=== PATIENT | female | born 1960 | race Caucasian/White ===

== ENCOUNTER → 2016-09-07 | Outpatient (CLI) | payer BC ==
--- NOTE | ~2016-09-07 | US6 ---
[facility] A Service of [facility] & [facility] RADIOLOGY TEXT RESULTS PATIENT: EDMUNDO NAJERA LOCATION: [facility] : 56 UNIT #: [id number] AGE: [address]: Fabricio Sadler MD SEX: F ORDER DR: [id number] [address] [address] [id number] O MR#: [id number] Acc #: [id number] NAME: EDMUNDO NAJERA : 1960 SEX: F STUDY DATE/TIME: 09/07/2016 10:08 UNIT: [facility] ROOM: STUDY DESCRIPTION: US Abdominal Limited Attending Physician: Fabricio Sadler M.D. Referring Physician: Fabricio Sadler M.D. Ordering Physician: Fabricio Sadler M.D. Primary Care Physician: Fabricio Sadler M.D. MEDICAL IMAGING REPORT This report is preliminary unless electronic signature is present. EXAM Right upper quadrant ultrasound 09/07/2016 HISTORY Right upper quadrant abdominal pain for 6 months with nausea and vomiting. FINDINGS The liver is homogeneous in echotexture and demonstrates no cystic or solid mass lesions. The intra- and extrahepatic bile ducts are not dilated. The gallbladder contains a solitary 5 mm nonshadowing echogenic focus along its dependent portion. This is a nonspecific finding and could represent a nonshadowing gallstone, a polyp, or a sludge ball. There is no evidence of gallbladder wall thickening or pericholecystic fluid. The common duct measures 3 mm. The pancreas is poorly visualized due to overlying bowel gas. The right kidney is normal. IMPRESSION 1. Solitary 5 mm echogenic nonmobile, nonshadowing focus along the dependent gallbladder wall. Differential diagnosis includes a small gallbladder polyp, nonshadowing gallstone, or sludge ball. 2. Poor visualization of the pancreas due to overlying bowel gas. Dictated by... Antonio Concepcion M.D. THIS IS AN ELECTRONICALLY VERIFIED REPORT Antonio Concepcion M.D. at 09/07/2016 4:34 PM EAGLE/florentin TD: 09/07/2016 15:56 JOB #: [id number] [facility] A Service of [facility] & [facility] RADIOLOGY TEXT RESULTS PATIENT: EDMUNDO NAJERA LOCATION: [facility] : 56 UNIT #: [id number] AGE: [address]: Fabricio Sadler MD SEX: F ORDER DR: MEDICAL IMAGING REPORT Page 1 of 1
== END | disposition home or self-care (01) ==
LOC: SGUS 09:01
DX: R10.11 Right upper quadrant pain (principal)
CPT/HCPCS: 76705

== ENCOUNTER → 2016-11-30 | Outpatient (CLI) | payer BC ==
--- NOTE | ~2016-11-30 | MY30 ---
[facility] A Service of [facility] RADIOLOGY TEXT RESULTS PATIENT: EDMUNDO NAJERA LOCATION: [facility] : 56 UNIT #: [id number] AGE: [address]: Fabricio Sadler MD SEX: F ORDER DR: [id number] [address] [address] [id number] O MR#: [id number] Acc #: [id number] NAME: EDMUNDO NAJERA : 1960 SEX: F STUDY DATE/TIME: 11/30/2016 9:44 UNIT: [facility] ROOM: STUDY DESCRIPTION: MY SCREEN AYAKA BILAT DIGITAL Attending Physician: Fabricio Sadler M.D. Referring Physician: Fabricio Sadler M.D. Ordering Physician: Fabricio Sadler M.D. Primary Care Physician: Fabricio Sadler M.D. MEDICAL IMAGING REPORT This report is preliminary unless electronic signature is present. EXAM Bilateral digital screening mammogram with CAD Date: 11/30/2016 HISTORY No personal family history breast cancer or current complaints. COMPARISON Bilateral screening mammogram performed at [facility], 03/21/15. FINDINGS The study was originally performed on 11/30/16 and submitted for interpretation today, 12/07/2016, after the arrival of outside comparisons. CC and MLO views were obtained of each breast and extended craniocaudal lateral view of the right breast. The study was performed utilizing digital technique and reviewed with an FDA-approved CAD device. Breast parenchyma is mildly fatty replaced. Benign appearing lymph node in the posterior upper outer right breast unchanged from prior. No new or developing nodule, architectural distortion or suspicious cluster of microcalcification. IMPRESSION BIRADS 2. Benign findings. Routine bilateral screening mammogram is recommended in year. Patients over the age of 40 are entered into a reminder system with target due date for the next mammogram. A result letter will also be sent to the patient. [facility] A Service [facility] RADIOLOGY TEXT RESULTS PATIENT: EDMUNDO NAJERA LOCATION: [facility] : 56 UNIT #: [id number] AGE: [address]: Fabricio Sadler MD SEX: F ORDER DR: BARBADS: 2 Benign Finding Dictated by... Velma Lui M.D. THIS IS AN ELECTRONICALLY VERIFIED REPORT Velma Lui M.D. at 12/13/2016 8:37 AM VALE/analisa TD: 12/08/2016 00:31 JOB #: [id number] MEDICAL IMAGING REPORT Page 1 of 1
== END | disposition home or self-care (01) ==
LOC: SMAM 09:12
DX: Z12.31 Encounter for screening mammogram for malignant neoplasm of breast (principal)
CPT/HCPCS: G0202